=== PATIENT | male | born 1990 ===

== ENCOUNTER → 2020-12-14 17:58 | Outpatient (CLI) | payer OTHER, SELFPAY ==
[2020-12-14 19:03] LABS: COVID19 -Nasal RAPID Negative (Negative)
== END ==
PROVIDERS: Visit Provider Nurse Practitioner
DX: J02.9 Acute pharyngitis, unspecified (principal); R05 Cough; Z20.822 Contact with and (suspected) exposure to COVID-19
CPT/HCPCS: 87635